=== PATIENT | female | born 1995 | race Caucasian/White ===

== ENCOUNTER 2017-08-07 07:30 | Inpatient (IN) | payer OTHER ==
[2017-08-07] MEDS: ELECTROLYTE-148 SOLN 1,000 ML IV SCH ×2 (08:30→09:30)
[2017-08-07 08:35] VITALS: BMI 36.2
--- NOTE | 2017-08-07 09:55 | HP ---
Past Medical History - Primary Care Physician PCP:: Varghese Doss - Admission Chief Complaint: 39 weeks, transverse lie History of Present Illness: 22 yo f edc by sono 08/13/17 39.1 weeks. with transverse lie admitted for c/s, rba discussed History Source: Patient - Past Medical History ...: 3 ...Para: 0 ...Spon : 1 ...Induced : 1 ...LMP: 10/13/16 ... Weeks Gestation by Dates: 38.1 ...EDC by Dates: 08/20/17 ...EDC by Sono: 08/13/17 - Past Surgical History Hx Myomectomy: No Hx Transabdominal Cerclage: No - Smoking History Smoking history: Never smoked Have you smoked in the past 12 months: No Aproximately how many cigarettes per day: 0 - Alcohol/Substance Use Hx Alcohol Use: No - Social History History of Recent Travel: No Home Medications - Allergies Allergies/Adverse Reactions: Allergies Allergy/AdvReac Type Severity Reaction Status Date / Time No Known Drug Allergies Allergy Verified 08/07/17 08:22 BANANAS Allergy Severe Hives Uncoded 08/07/17 08:22 PLANTAINS Allergy Severe Hives Uncoded 08/07/17 08:22 - Home Medications Home Medications: Ambulatory Orders Ferrous Sulfate 325 mg PO DAILY 08/07/17 Pnv with Ca,No.72/Iron/FA [ Plus Tablet] 1 tab PO DAILY 08/07/17 Review of Systems - Review of Systems Constitutional: reports: No Symptoms Eyes: reports: No Symptoms HENT: reports: No Symptoms Neck: reports: No Symptoms Cardiovascular: reports: No Symptoms Respiratory: reports: No Symptoms Gastrointestinal: reports: No Symptoms Genitourinary: reports: No Symptoms Musculoskeletal: reports: No Symptoms Integumentary: reports: No Symptoms Endocrine: reports: No Symptoms Hematology/Lymphatic: reports: No Symptoms Psychiatric: reports: No Symptoms Physical Exam - Maternity Vital Signs: Vital Signs Temperature 97.6 F 08/07/17 07:45 Pulse Rate 70 08/07/17 07:45 Respiratory Rate 20 08/07/17 07:45 Blood Pressure 129/67 08/07/17 07:45 O2 Sat by Pulse Oximetry (%) Constitutional: Yes: Well Nourished, No Distress, Calm Eyes: Yes: WNL, Conjunctiva Clear, EOM Intact HENT: Yes: WNL, Atraumatic, Normocephalic Neck: Yes: WNL, Supple, Trachea Midline Cardiovascular: Yes: WNL, Regular Rate and Rhythm Breast(s): Yes: WNL - Abdominal Exam/OB Number of Fetuses: Single Presentation: Vertex Contractions: No Intensity: Unaware Monitor Mode: External Heart Rate Location: [facility] Category: I Accelerations: Uniform Decelerations: None - Vaginal Exam/OB Vaginal Bleediing: No Speculum Exam: No Dilatation (cm): closed Effacement (%): 0 Amniotic Membrane Status: Intact Presentation: Transverse/Shoulder Station: -3 - Physical Exam Edema: No Edema: LLE: Trace, RLE: Trace Deep Tendon Reflex Grade: Normal +2 Psychiatric: Yes: WNL Hemorrhage Risk Assessment - Risk Factors Medium Risk Factors: Yes: None High Risk Factors: Yes: None Risk Score: 1 Risk Level: Medium Risk Problem List - Problems (1) with 39 completed weeks gestation Code(s): Z3A.39 - 39 WEEKS GESTATION OF (2) Transverse lie of fetus Code(s): O32.2XX0 - MATERNAL CARE FOR TRANSVERSE AND OBLIQUE LIE, UNSP Assessment/Plan for c/s rba discussed
[2017-08-07] MEDS ORDERED: ONDANSETRON 4 MG/2 ML VIAL IVPUSH PRN (10:02)
[2017-08-07] MEDS ORDERED: IBUPROFEN 600 MG TABLET (FP) PO PRN (10:02)
[2017-08-07] MEDS: OXYTOCIN 20 UNITS in 0.9% NS 1,000 ML IV SCH ×2 (10:30→11:19)
[2017-08-07] MEDS ORDERED: CITRIC ACID/SODIUM CITRATE 30 ML UNIT-DOSE CUP PO ONE (10:30)
[2017-08-07] MEDS ORDERED: SIMETHICONE 80 MG TAB.CHEW (FP) PO PRN (10:36)
[2017-08-07] MEDS ORDERED: METHYLERGONOVINE MALEATE 0.2 MG/1 ML AMP IM PRN (10:36)
[2017-08-07] MEDS ORDERED: diphenhydrAMINE HCL 25 MG CAPSULE (FP) PO PRN (10:36)
[2017-08-07] MEDS ORDERED: oxyCODONE HCL 5 MG TABLET PO PRN (10:36)
[2017-08-07] MEDS ORDERED: BENZOCAINE 20% 57 GM BOTTLE TP PRN (10:36)
[2017-08-07] MEDS ORDERED: WITCH HAZEL 50% (TUCKS) 40 PAD/JAR PAD TP PRN (10:36)
[2017-08-07] MEDS ORDERED: IBUPROFEN 800 MG/8 ML IJ IVPB PRN (10:36)
[2017-08-07] MEDS ORDERED: BENZOCAINE 28 GM HEMORRHOIDAL OINTMENT PR PRN (10:36)
[2017-08-07] MEDS ORDERED: DEXTROSE 5%-LACTATED RINGERS 1,000 ML IV SCH (10:45)
--- NOTE | 2017-08-07 12:11 | OP ---
DATE OF OPERATION: 08/07/2017 PREOPERATIVE DIAGNOSES: at 39 weeks, transverse lie, for section. POSTOPERATIVE DIAGNOSES: at 39 weeks, transverse lie, for section. PROCEDURE: Primary low segment transverse section. SURGEON: Anushka Owen MD PHOTOGRAPHIC DEVELOPER AND PRINTER: MARTHA Gongora. ANESTHESIA: Spinal. ANESTHESIOLOGIST: Ayaan Fink MD ESTIMATED BLOOD LOSS: 500 mL. DESCRIPTION OF PROCEDURE: The patient was taken to the operating room where under adequate spinal anesthesia; the abdomen and perineum were prepped and draped. Pfannenstiel abdominal incision was made. The abdominal wall was cut layer by layer. Anterior peritoneum was exposed and incised. Upon entering the abdominal cavity, lower uterine segment was identified and ureterovesical fold of peritoneum established. The bladder was pushed down and then with the lower blade with the Lali retractor in the pelvis, a low transverse uterine incision was made. The incision was extended laterally. Amniotic sac was entered. Clear fluid. The baby was in transverse position and right acromial anterior. Delivered via vertex. Cord clamped and placenta was delivered manually. The uterine cavity was cleaned of all remaining tissue. Uterine incision was closed in 2 layers; first layer with 0 Biosyn continuous suture and the second layer with 0 Biosyn embrocating the first layer. Bladder flap was closed with 0 Biosyn continuous suture. Both tubes and ovaries were checked and normal. No active bleeding was seen. All the laparotomy, sponge counts, and instrument counts were correct. Then the peritoneum was closed with 0 Biosyn continuous suture. Muscles were brought together with interrupted suture of 0 Biosyn. The fascia was closed with 0 Biosyn continuous suture, subcutaneous fat with interrupted suture of 0 Biosyn, and the skin was closed with kizzy. The patient tolerated the procedure well and left the operating room in good condition. ANUSHKA OWEN M.D. SR/[id number]
[2017-08-07] MEDS: CEFAZOLIN 1 GM/D5W 50 ML IVPB SCH (18:01)
[2017-08-08] MEDS: CEFAZOLIN 1 GM/D5W 50 ML IVPB SCH (01:59)
[2017-08-08] MEDS: ACETAMINOPHEN 325 MG TABLET (FP) PO PRN ×3 (02:15→19:10)
[2017-08-08] MEDS: IBUPROFEN 600 MG TABLET (FP) PO PRN ×4 (02:15→19:13)
[2017-08-08 07:30] LABS: BASOPHIL 0.1 % (0-2.0); EOSINOPHIL 0.2 % (0-4.5); MCH 27.2 pg (25.7-33.7); MCHC 33.5 g/dl (32.0-36.0); MEAN CELL VOLUME 81.1 fl (80-96); MEAN PLT VOLUME 7.6 fl (7.5-11.1); NEUTROPHILS 80.8 % (42.8-82.8); PLATELET COUNT 210 K/MM3 (134-434); RDW 15.3 % (11.6-15.6); WHITE BLOOD COUNT 10.2 K/mm3 (4.0-10.0)
[2017-08-08] MEDS: ENOXAPARIN NA (PORCINE) 40 MG/0.4 ML DISP.SYRIN SQ SCH (09:32)
[2017-08-08] MEDS ORDERED: BISACODYL 10 MG SUPP.RECT PR PRN (10:36)
--- NOTE | 2017-08-08 13:53 | PN ---
Progress Note (short form) - Note Progress Note: Anesthesia postop note 22 y/o F s/p spinal anesthesia, duramorph for postop pain management POD#1, vss, aaox3, ambulating No anesthesia complications.
[2017-08-08] MEDS: oxyCODONE HCL 5 MG TABLET PO PRN (14:43)
--- NOTE | 2017-08-08 21:49 | PN ---
Progress Note (short form) - Note Progress Note: pod 1 s/p c/s doing well CBC, BMP 08/08/17 07:05 Last Vital Signs Temp Pulse Resp BP Pulse Ox 97.7 F 60 20 125/72 100 08/08/17 10:00 08/08/17 10:00 08/08/17 10:00 08/08/17 10:00 08/07/17 11:45 abdomen soft, no distension, no cva incision dry, clean no calf tenderness plan ambulate advance diet Problem List - Problems (1) with 39 completed weeks gestation Code(s): Z3A.39 - 39 WEEKS GESTATION OF (2) Transverse lie of fetus Code(s): O32.2XX0 - MATERNAL CARE FOR TRANSVERSE AND OBLIQUE LIE, UNSP
--- NOTE | 2017-08-09 08:09 | PN ---
Progress Note (short form) - Note Progress Note: pod 2 doing well, ambulating , tolerating diet CBC, BMP 08/08/17 07:05 Last Vital Signs Temp Pulse Resp BP Pulse Ox 97.5 F L 65 18 123/76 100 08/08/17 21:51 08/08/17 21:51 08/08/17 21:51 08/08/17 21:51 08/07/17 11:45 abdomen soft , no distension , no cva incision dry, clean no calf tenderness plan ambulate, cbc in am pain management Problem List - Problems (1) with 39 completed weeks gestation Code(s): Z3A.39 - 39 WEEKS GESTATION OF (2) Transverse lie of fetus Code(s): O32.2XX0 - MATERNAL CARE FOR TRANSVERSE AND OBLIQUE LIE, UNSP
[2017-08-09] MEDS: ENOXAPARIN NA (PORCINE) 40 MG/0.4 ML DISP.SYRIN SQ SCH (09:56)
[2017-08-09] MEDS: oxyCODONE HCL 5 MG TABLET PO PRN (12:01)
[2017-08-09] MEDS: IBUPROFEN 600 MG TABLET (FP) PO PRN ×2 (12:02→21:26)
[2017-08-09] MEDS: ACETAMINOPHEN 325 MG TABLET (FP) PO PRN ×2 (12:02→21:27)
[2017-08-09] MEDS ORDERED: SENNOSIDES/DOCUSATE COMBO (SENNA PLUS) TABLET (UD) PO PRN (22:00)
--- NOTE | 2017-08-10 06:26 | PN ---
Post Progress Note Post Day: 3 Type of Delivery: Primary C/S Vital Signs: Vital Signs Temperature 98.4 F 08/09/17 22:00 Pulse Rate 68 08/09/17 22:00 Respiratory Rate 20 08/09/17 22:00 Blood Pressure 118/84 08/09/17 22:00 O2 Sat by Pulse Oximetry (%) 100 08/07/17 11:45 Breast Exam: Yes: Soft Uterus: Yes: Fundus Firm Incision: Yes: Slick intact Abdomen/GI: Yes: Abdomen soft Lochia: Yes: Rubra Lochia, amount: Small Extremities: Yes: Calves non-tender Activity: Ambulating - Labs Labs: CBC WBC 10.2 K/mm3 (4.0-10.0) H 08/08/17 07:05 RBC 3.74 M/mm3 (3.60-5.2) 08/08/17 07:05 Hgb 10.2 GM/dL (10.7-15.3) L D 08/08/17 07:05 Hct 30.3 % (32.4-45.2) L D 08/08/17 07:05 MCV 81.1 fl (80-96) 08/08/17 07:05 MCH 27.2 pg (25.7-33.7) 08/08/17 07:05 MCHC 33.5 g/dl (32.0-36.0) 08/08/17 07:05 RDW 15.3 % (11.6-15.6) 08/08/17 07:05 Plt Count 210 K/MM3 (134-434) D 08/08/17 07:05 MPV 7.6 fl (7.5-11.1) 08/08/17 07:05 Neutrophils % 80.8 % (42.8-82.8) 08/08/17 07:05 Lymphocytes % 12.1 % (8-40) D 08/08/17 07:05 Monocytes % 6.8 % (3.8-10.2) 08/08/17 07:05 Eosinophils % 0.2 % (0-4.5) 08/08/17 07:05 Basophils % 0.1 % (0-2.0) 08/08/17 07:05 Assessment/Plan doing well no dizziness oob reg diet dc home today
[2017-08-10 07:48] LABS: BASOPHIL 0.3 % (0-2.0); MCH 27.5 pg (25.7-33.7); MCHC 33.5 g/dl (32.0-36.0); MEAN PLT VOLUME 7.8 fl (7.5-11.1); PLATELET COUNT 263 K/MM3 (134-434); RDW 15.5 % (11.6-15.6); WHITE BLOOD COUNT 9.1 K/mm3 (4.0-10.0)
[2017-08-10 09:26] VITALS: BP 134/64; PULSE 54; TEMP 97.4
[2017-08-10] MEDS: ENOXAPARIN NA (PORCINE) 40 MG/0.4 ML DISP.SYRIN SQ SCH (10:35)
--- NOTE | 2017-08-12 18:42 | PATH ---
Surgical Pathology Report Patient Name: LEE YOUNG Med. Rec. #: [id number] /Age/Gender: 1995 (Age: 22) / F Account: [id number] Location: [facility] OBS/RESEARCH AND DEVELOPMENT MANAGER Taken: 08/07/2017 Received: 08/08/2017 Reported: 08/12/2017 Physicians: Varghese Doss M.D. Specimen(s) Received PLACENTA Clinical History transverse section Final Diagnosis PLACENTA, SECTION: 413 g THIRD TRIMESTER PLACENTA WITH TRIVASCULAR UMBILICAL CORD AND UNREMARKABLE PLACENTAL MEMBRANES. Electronically Signed Agata Nicholson M.D. Gross Description The specimen is received fresh labeled placenta and is a 413 gram, 17 x 15 x 2.8 cm. placenta with attached membranes and umbilical cord. The attached membranes are glistening and translucent and insert marginally. The umbilical cord measures 38 cm. in length and averages 1 cm. in diameter. The cord inserts eccentrically, 5 cm. to the nearest margin. No true knots or strictures are identified. Cut surface of the umbilical cord reveals 3 vessels. The surface is corado-blue with minimal fibrin deposition and appropriate caliber vessels. The maternal surface is red-brown with focal defects. Sectioning reveals red-brown, spongy parenchyma. No lesions are identified. Cad Engineer sections are submitted in three cassettes as follows: 1- membrane rolls and umbilical cord; 2-3- full thickness sections of placenta. [facility]/08/09/2017 [facility]/08/09/2017
== END 2017-08-10 11:30 | disposition home or self-care (01) | DRG 540 ==
LOC: JLDR 07:30 → J3W 11:56
PROVIDERS: ADMIT Obstetrics & Gynecology; ATTEND Obstetrics & Gynecology
PROC: 10D00Z1 Extraction of Products of Conception, Low, Open Approach (ICD-10-PCS; principal; 2017-08-07)
DX: O32.2XX0 Maternal care for transverse and oblique lie, not applicable or unspecified (principal); Z3A.39 39 weeks gestation of pregnancy; Z37.0 Single live birth
CPT/HCPCS: 36415; 85025; 88307-TC

== ENCOUNTER 2019-12-07 04:30 | Inpatient (IN) | payer OTHER ==
[2019-12-07 05:09] LABS: BASO % 0.9 % (0-2.0); EOS % 0.3 % (0-4.5); HEMATOCRIT 34.9 % (32.4-45.2); HEMOGLOBIN 11.6 GM/dL (10.7-15.3); LYMPH % 20.5 % (8-40); MCH 25.7 pg (25.7-33.7); MCHC 33.2 g/dl (32.0-36.0); MEAN CELL VOLUME 77.3 fl (80-96); MEAN PLT VOLUME 8.5 fl (7.5-11.1); MONO % 5.6 % (3.8-10.2); NEUT % 72.7 % (42.8-82.8); PLATELET COUNT 261 K/MM3 (134-434); RBC 4.51 M/mm3 (3.60-5.2); RDW 16.1 % (11.6-15.6); WHITE BLOOD COUNT 9.5 K/mm3 (4.0-10.0)
[2019-12-07 05:11] VITALS: BMI 32.4
[2019-12-07 05:24] LABS: INR 0.92 (0.83-1.09); PROTHROMBIN TIME (PATIENT) 10.9 SEC (9.7-13.0)
[2019-12-07 05:27] LABS: ACTIVATED PTT 29.3 SECONDS (25.2-36.5)
[2019-12-07] MEDS ORDERED: DEXTROSE 5%-LACTATED RINGERS 1,000 ML IV SCH ×2 (05:30→09:45)
[2019-12-07 05:33] LABS: BLOOD UREA NITROGEN 9.2 mg/dL (7-18); CREATININE 0.5 mg/dL (0.55-1.3); POTASSIUM 3.7 mmol/L (3.5-5.1)
[2019-12-07 09:15] LABS: POC NITRAZINE POS
--- NOTE | 2019-12-07 09:48 | HP ---
Past Medical History - Admission Chief Complaint: Labor pain History of Present Illness: 24 yo , @ 39 weeks gestation, EDC 12/14/19, with one previous , presents to L&D c/o labor pain. Upon admission there was evidence of leakage of fluid and cervix was 1cm dilated. Patient desired but after extensive discussion with patient, decision made for repeat . History Source: Patient Limitations to Obtaining History: No Limitations - Past Medical History ...: 4 ...Para: 1 ...Term: 1 ...: 0 ...Spon : 1 ...Induced : 1 ...Multiple Gestation: 0 ...EDC by Sono: 12/14/19 - Past Surgical History Past Surgical History: Yes: Hx Myomectomy: No Hx Transabdominal Cerclage: No - Smoking History Smoking history: Never smoked Have you smoked in the past 12 months: No Aproximately how many cigarettes per day: 0 - Alcohol/Substance Use Hx Alcohol Use: No History of Substance Use: reports: None - Social History Usual Living Arrangement: Yes: With Significant Other History of Recent Travel: No Home Medications - Allergies Allergies/Adverse Reactions: Allergies Allergy/AdvReac Type Severity Reaction Status Date / Time No Known Drug Allergies Allergy Verified 12/07/19 05:17 BANANAS Allergy Severe Hives Uncoded 12/07/19 05:17 PLANTAINS Allergy Severe Hives Uncoded 12/07/19 05:17 - Home Medications Home Medications: Ambulatory Orders Vitamins (Sjr) - 1 tab PO DAILY 12/07/19 Review of Systems - Review of Systems Constitutional: reports: No Symptoms Eyes: reports: No Symptoms HENT: reports: No Symptoms Neck: reports: No Symptoms Cardiovascular: reports: No Symptoms Respiratory: reports: No Symptoms Gastrointestinal: reports: No Symptoms Genitourinary: reports: Pain, Other (Leakage of fluid) Musculoskeletal: reports: No Symptoms Neurological: reports: No Symptoms Psychiatric: reports: No Symptoms Pain Intensity: 4 Physical Exam - Maternity Vital Signs: Vital Signs Temperature 98.2 F 12/07/19 06:00 Pulse Rate 62 12/07/19 06:00 Respiratory Rate 20 12/07/19 06:00 Blood Pressure 107/69 12/07/19 06:00 O2 Sat by Pulse Oximetry (%) Constitutional: Yes: Well Nourished Eyes: Yes: Conjunctiva Clear HENT: Yes: Atraumatic Neck: Yes: Supple Cardiovascular: Yes: Regular Rate and Rhythm Lungs: Clear to auscultation - Abdominal Exam/OB Number of Fetuses: Single Presentation: Vertex Contractions: Yes Regularity: Irregular Decelerations: None - Vaginal Exam/OB Vaginal Bleediing: No Dilatation (cm): 1 Effacement (%): 60 Amniotic Membrane Status: Ruptured Amniotic Fluid: Yes: Meconium Stained Meconium: Light Station: -2 - Physical Exam Musculoskeletal: Yes: WNL ...Motor Strength: WNL Psychiatric: Yes: Alert, Oriented - Labs Lab Results: CBC, BMP 12/07/19 04:45 12/07/19 04:45 Problem List - Problems (1) with 39 completed weeks gestation Problems reviewed: Yes Code(s): Z3A.39 - 39 WEEKS GESTATION OF (2) Rupture of membranes with delay of delivery Problems reviewed: Yes Code(s): O42.90 - KEVIN ROM, 7TH0 BETW RUPT & ONST LABR, UNSP WEEKS OF GEST Assessment/Plan 39 weeks gestation Previous Spontaneous rupture of membrane Admit to L&D
[2019-12-07] MEDS ORDERED: CITRIC ACID/SODIUM CITRATE 30 ML UNIT-DOSE CUP PO ONE (09:50)
[2019-12-07] MEDS ORDERED: OXYTOCIN 30 UNITS in 0.9% NS 30 UNIT/500 ML INFUS.BAG IVPB SCH (11:00)
--- NOTE | 2019-12-07 11:05 | PN ---
Progress Note, Labor Vaginal Exam #1 Labor Exam Date: 12/07/19 Labor Exam Time: 11:00 Heart Rate (range): Cat I Dilatation: 1 Effacement (%): 50 Amniotic Membrane Status: Ruptured Presentation: Vertex/Position Station: -2 Remarks: Assuming care of this patient. Pt mostly comfortable, infrequent contractions Cervix 50/1+/-3, anterior Very motivated to OR currently in use Discussed option of TOLAC with low dose pitocin and re-evaluation in 1-2 hours for cervical change. If no progress, or change in FHT, will proceed sooner to OR. Increased risk of uterine rupture reviewed with patient regarding use of pitocin for augmentation/IOL. All questions answered. Monitor closely and re-evaluate prn or in 1-2 hours for progress Silvia Mathias MD
[2019-12-07] MEDS ORDERED: ELECTROLYTE-148 SOLN 1,000 ML IV SCH (12:15)
--- NOTE | 2019-12-07 12:57 | PN ---
Progress Note, Labor Vaginal Exam #2 Labor Exam Date: 12/07/19 Labor Exam Time: 12:55 Heart Rate (range): Cat I Dilatation: 1 Effacement (%): 50 Amniotic Membrane Status: Ruptured Presentation: Vertex/Position Station: -3 Remarks: Despite 2 hours of pitocin, no cervical change Meconium persists Cat I tracing Discussed now roughly 12 hours from PROM with little progress and still not in labor Rec'd RLTCS at this junction, pt feels more amenable to repeat C/S Silvia Mathias MD
[2019-12-07] MEDS ORDERED: OXYTOCIN 20 UNITS in 0.9% NS 20 UNIT/1,000 ML INFUS.BAG IV ONE ×2 (13:24→15:55)
[2019-12-07] MEDS ORDERED: morphine SULFATE/PF 0.5 MG/ML (2cc Syringe - QUVA) ONE (13:30)
[2019-12-07] MEDS ORDERED: ePHEDrine SULFATE 50 MG/1 ML AMPULE ONE (13:30)
[2019-12-07] MEDS ORDERED: CEFAZOLIN 2 GM/D5W 2 GM/50 ML ML IVPB ONE (13:34)
--- NOTE | 2019-12-07 14:45 | OP ---
Operative Note - Note: Operative Date: 12/07/19 Pre-Operative Diagnosis: 39 week , SROM, Failure to Progress Operation: Repeat Low Transverse Findings: VFI, LOT, no nuchal, light meconium, Apgars 9/9. Weight pending. Normal tubes and ovaries bilaterally Post-Operative Diagnosis: Same as Pre-op Surgeon: Christa Mathias Ocean Forwarder: Lele Harrison Anesthesia: Spinal Estimated Blood Loss (mls): 400 Drains, Volume Out (mls): 50 (clear urine) Operative Report Dictated: Yes
[2019-12-07] MEDS ORDERED: METHYLERGONOVINE MALEATE 0.2 MG/1 ML AMP IM PRN (14:46)
[2019-12-07] MEDS ORDERED: oxyCODONE HCL 5 MG TABLET PO PRN (14:46)
[2019-12-07] MEDS ORDERED: ONDANSETRON 4 MG/2 ML VIAL IVPUSH PRN (14:52)
[2019-12-07] MEDS ORDERED: OXYTOCIN 20 UNITS in 0.9% NS 20 UNIT/1,000 ML INFUS.BAG IV SCH (15:00)
[2019-12-07] MEDS ORDERED: IBUPROFEN 800 MG/8 ML IJ IVPB ONE (16:24)
[2019-12-07] MEDS: IBUPROFEN 800 MG/8 ML IJ IVPB PRN (16:30)
[2019-12-07] MEDS: FERROUS SO4 325 MG TABLET (FP) PO SCH (17:50)
--- NOTE | 2019-12-07 18:18 | OP ---
DATE OF OPERATION: 12/07/2019 PREOPERATIVE DIAGNOSIS: A 39-week , spontaneous rupture of membranes, failure to progress, prior section. POSTOPERATIVE DIAGNOSIS: A 39-week , spontaneous rupture of membranes, failure to progress, prior section. PROCEDURE: Repeat low transverse section. ANESTHESIA: Spinal. ESTIMATED BLOOD LOSS: 400. INTRAVENOUS FLUIDS: Per anesthesia record. URINE OUTPUT: 50 mL of clear urine. SURGEON: Christa Mathias MD PARTNERSHIP DEVELOPMENT MANAGER: MARTHA Gongora FINDINGS: Viable female , LOT presentation. No nuchal. Light meconium. Apgars 9, 9. Weight pending. Normal tubes and ovaries bilaterally. COMPLICATIONS: None. CONDITION: Stable to recovery room. DESCRIPTION OF PROCEDURE: After the appropriate consents were signed, patient was taken to the operating room. Spinal anesthesia was administered. Abdomen was prepped and draped in a normal sterile fashion. A sterile Odell catheter was inserted prior to entry into the operating room. Time-out was performed confirming correct patient and procedure. Pfannenstiel incision was made through the skin with a scalpel and carried through to the underlying layers until the fascia was nicked in the midline. The fascia was noted to be dense from adhesions and was extended laterally with the scalpel. The inferior aspect of the fascia was grasped with the Julio C clamps, tented upwards, and the rectus muscle was dissected off bluntly and with the Alexander scissors. Attention was then paid to the superior aspect, which was taken down in a similar fashion. The rectus muscles are grasped, tented upwards , and in the midline with scalpel. The peritoneum was entered sharply. Bladder blade was inserted. There were adhesions from the patient's bladder flap to the mid intrauterine segment. This was taken down with the Metzenbaums to allow for better visualization of the lower uterine segment. The lower uterine segment was incised in a low transverse fashion. Light meconium fluid was noted. The incision was extended manually. The infant's head was delivered without difficulty as were the remaining shoulder and body. Cord was clamped and cut, and infant was handed off to the awaiting NICU staff. The placenta was removed manually. The uterus was cleared of all clot and debris. The uterus was exteriorized. The hysterotomy was closed in a single layer with a 0 Vicryl. This had to be reinforced with a 1-0 Vicryl to achieve hemostasis. Surgicel was applied anteriorly to the hysterotomy given her history of adhesions. Uterus was then returned to the abdominal cavity. The hysterotomy was re-inspected and noted to be hemostatic. The gutters were cleared of all clot and debris. The muscle reapproximated with 2-0 chromic. The fascia was closed with 0 Vicryl. Subcutaneous tissue was closed with a 1-0 Vicryl. Skin was closed with a 4-0 Biosyn. All sponge, lap, needle counts were correct x3. The patient did receive Ancef at the start of the procedure. She was taken from the operating room to the recovery area in stable condition. MD STORMY FALLON/[id number] MTDD
[2019-12-07] MEDS ORDERED: SENNOSIDES/DOCUSATE COMBO (SENNA PLUS) TABLET (UD) PO PRN (22:00)
[2019-12-08] MEDS: IBUPROFEN 800 MG/8 ML IJ IVPB PRN (07:11)
[2019-12-08 07:53] LABS: BASO % 0.2 % (0-2.0); EOS % 0.2 % (0-4.5); HEMATOCRIT 29.7 % (32.4-45.2); LYMPH % 12.1 % (8-40); MCH 25.7 pg (25.7-33.7); MCHC 33.5 g/dl (32.0-36.0); MEAN CELL VOLUME 76.9 fl (80-96); MEAN PLT VOLUME 8.3 fl (7.5-11.1); MONO % 8.7 % (3.8-10.2); NEUT % 78.8 % (42.8-82.8); PLATELET COUNT 179 K/MM3 (134-434); RBC 3.87 M/mm3 (3.60-5.2); RDW 16.3 % (11.6-15.6); WHITE BLOOD COUNT 8.2 K/mm3 (4.0-10.0)
--- NOTE | 2019-12-08 07:54 | PN ---
Post Progress Note - Subjective Subjective: Patient is doing well, not yet ambulating Post Day: 1 Type of Delivery: Repeat C/S Vital Signs: Vital Signs Temperature 98.7 F 12/08/19 05:30 Pulse Rate 84 12/08/19 05:30 Respiratory Rate 20 12/08/19 05:52 Blood Pressure 100/68 12/08/19 05:30 O2 Sat by Pulse Oximetry (%) 100 12/07/19 15:50 Breast Exam: Yes: Other (deferred) Uterus: Yes: Fundus Firm Incision: Yes: Dressing dry and intact (removed), Sutures intact Abdomen/GI: Yes: Abdomen soft Extremities: Yes: Calves non-tender Perineum: Yes: Intact Activity: Ambulating - Labs Labs: CBC WBC 9.5 K/mm3 (4.0-10.0) 12/07/19 04:45 RBC 4.51 M/mm3 (3.60-5.2) 12/07/19 04:45 Hgb 11.6 GM/dL (10.7-15.3) 12/07/19 04:45 Hct 34.9 % (32.4-45.2) D 12/07/19 04:45 MCV 77.3 fl (80-96) L 12/07/19 04:45 MCH 25.7 pg (25.7-33.7) 12/07/19 04:45 MCHC 33.2 g/dl (32.0-36.0) 12/07/19 04:45 RDW 16.1 % (11.6-15.6) H 12/07/19 04:45 Plt Count 261 K/MM3 (134-434) 12/07/19 04:45 MPV 8.5 fl (7.5-11.1) 12/07/19 04:45 Absolute Neuts (auto) 6.9 K/mm3 (1.5-8.0) 12/07/19 04:45 Neutrophils % 72.7 % (42.8-82.8) 12/07/19 04:45 Lymphocytes % 20.5 % (8-40) D 12/07/19 04:45 Monocytes % 5.6 % (3.8-10.2) 12/07/19 04:45 Eosinophils % 0.3 % (0-4.5) D 12/07/19 04:45 Basophils % 0.9 % (0-2.0) // 04:45 Nucleated RBC % 0 % (0-0) 02// 04:45 Assessment/Plan 24 y/o female on POD # 1 in stable condition -Encourage ambulation -F/U Am labs -Continue PP/post-op care -Anticipate D/C home on POD # 3
[2019-12-08] MEDS: FERROUS SO4 325 MG TABLET (FP) PO SCH ×2 (09:25→17:56)
[2019-12-08] MEDS: PRENATAL VITAMINS W/ FOLIC ACID TABLET (FP) PO SCH (09:25)
--- NOTE | 2019-12-08 09:56 | PN ---
Progress Note (short form) - Note Progress Note: POD #1 s/p repeat C/S under spinal anesthesia with intrathecal duramorph. Patient doing well, pain well controlled, denies n/v/pruritus. Patient ambulating without issue. All questions answered.
[2019-12-08] MEDS ORDERED: BISACODYL 10 MG SUPP.RECT RC PRN (14:46)
[2019-12-08] MEDS: IBUPROFEN 600 MG TABLET (FP) PO PRN ×2 (17:13→23:21)
[2019-12-08] MEDS: SIMETHICONE 80 MG TAB.CHEW (FP) PO PRN ×2 (17:13→23:23)
[2019-12-08] MEDS: ACETAMINOPHEN 325 MG TABLET (FP) PO PRN ×2 (17:13→23:21)
[2019-12-09] MEDS: FERROUS SO4 325 MG TABLET (FP) PO SCH ×2 (09:35→17:38)
[2019-12-09] MEDS: PRENATAL VITAMINS W/ FOLIC ACID TABLET (FP) PO SCH (09:35)
--- NOTE | 2019-12-09 09:40 | PN ---
Post Progress Note - Subjective Subjective: c/o pain scale 7/10 Post Day: 2 Type of Delivery: Repeat C/S Vital Signs: Vital Signs Temperature 97.6 F 12/09/19 09:00 Pulse Rate 68 12/09/19 09:00 Respiratory Rate 20 12/09/19 09:00 Blood Pressure 117/67 12/09/19 09:00 O2 Sat by Pulse Oximetry (%) 100 12/07/19 15:50 Breast Exam: Yes: Soft, Other (BF attempting ). No: Engorged Uterus: Yes: Fundus Firm, Fundus below umbilicus, Non-tender Incision: Yes: Dressing dry and intact, Sutures intact. No: Redness, Oozing Abdomen/GI: Yes: Abdomen soft, Passing flatus (bm not done ), Tolerating PO ( diet ). No: Abdominal Distention, Tender Lochia: Yes: Rubra Lochia, amount: Moderate Extremities: Yes: Calves non-tender Perineum: Yes: Intact Activity: Ambulating - Labs Labs: CBC WBC 8.2 K/mm3 (4.0-10.0) 12/08/19 07:23 RBC 3.87 M/mm3 (3.60-5.2) 12/08/19 07:23 Hgb 10.0 GM/dL (10.7-15.3) L 12/08/19 07:23 Hct 29.7 % (32.4-45.2) L 12/08/19 07:23 MCV 76.9 fl (80-96) L 12/08/19 07:23 MCH 25.7 pg (25.7-33.7) 12/08/19 07:23 MCHC 33.5 g/dl (32.0-36.0) 12/08/19 07:23 RDW 16.3 % (11.6-15.6) H 12/08/19 07:23 Plt Count 179 K/MM3 (134-434) D 12/08/19 07:23 MPV 8.3 fl (7.5-11.1) 12/08/19 07:23 Absolute Neuts (auto) 6.5 K/mm3 (1.5-8.0) 12/08/19 07:23 Neutrophils % 78.8 % (42.8-82.8) 12/08/19 07:23 Lymphocytes % 12.1 % (8-40) D 12/08/19 07:23 Monocytes % 8.7 % (3.8-10.2) 12/08/19 07: Eosinophils % 0.2 % (0-4.5) 12/08/19 07: Basophils % 0.2 % (0-2.0) 12/08/19 07: Nucleated RBC % 0 % (0-0) 12/08/19 07:23 Problem List - Problems (1) examination following delivery Code(s): Z39.2 - ENCOUNTER FOR ROUTINE FOLLOW-UP Assessment/Plan stable plan ct po care encourage , deep breathing , ambulation , po fluids requests discharge tomorrow.
[2019-12-09] MEDS: SIMETHICONE 80 MG TAB.CHEW (FP) PO PRN (15:53)
[2019-12-09] MEDS: ACETAMINOPHEN 325 MG TABLET (FP) PO PRN (15:53)
[2019-12-09] MEDS: IBUPROFEN 600 MG TABLET (FP) PO PRN (15:54)
--- NOTE | 2019-12-10 07:02 | DS ---
Physical Examination Vital Signs: Vital Signs Temperature 98.4 F 12/09/19 21:42 Pulse Rate 67 12/09/19 21:42 Respiratory Rate 20 12/09/19 21:42 Blood Pressure 127/74 12/09/19 21:42 O2 Sat by Pulse Oximetry (%) 100 12/07/19 15:50 Constitutional: Yes: Well Nourished, No Distress, Calm Eyes: Yes: WNL, Conjunctiva Clear, EOM Intact HENT: Yes: WNL, Atraumatic, Normocephalic Neck: Yes: WNL, Supple, Trachea Midline Cardiovascular: Yes: WNL, Regular Rate and Rhythm Respiratory: Yes: WNL, Regular, CTA Bilaterally Gastrointestinal: Yes: WNL, Normal Bowel Sounds Musculoskeletal: Yes: WNL Extremities: Yes: WNL Edema: No Integumentary: Yes: WNL Neurological: Yes: WNL, Alert, Oriented ...Motor Strength: WNL Psychiatric: Yes: WNL Labs: CBC, BMP 12/08/19 07:23 12/07/19 04:45 Discharge Summary Problems reviewed: Yes Reason For Visit: ADMIT-LABOR Current Active Problems examination following delivery (Acute) Rupture of membranes with delay of delivery (Acute) Procedures: Principal: RLTCS Hospital Course: Patient presented with PROM No labor ensued after 12 hours, despite 2 hours of pitocin IOL Patient had an uncomplicated RLTCS She met all milestones She was discharged home on POD#3 Silvia Mathias MD Condition: Stable - Instructions Diet, Activity, Other Instructions: Regular Diet Follow up in one week for an incision check with Dr. Mathias Referrals: Christa Mathias MD [Staff Physician] - Disposition: HOME - Home Medications Comprehensive Discharge Medication List: Ambulatory Orders Vitamins (Sjr) - 1 tab PO DAILY 12/07/19
[2019-12-10 08:23] LABS: BASO % 0.3 % (0-2.0); EOS % 1.8 % (0-4.5); HEMATOCRIT 26.7 % (32.4-45.2); HEMOGLOBIN 8.8 GM/dL (10.7-15.3); MCH 25.8 pg (25.7-33.7); MCHC 33.1 g/dl (32.0-36.0); MEAN CELL VOLUME 78.1 fl (80-96); MEAN PLT VOLUME 8.3 fl (7.5-11.1); MONO % 7.3 % (3.8-10.2); NEUT % 74.6 % (42.8-82.8); PLATELET COUNT 212 K/MM3 (134-434); RBC 3.42 M/mm3 (3.60-5.2); RDW 16.2 % (11.6-15.6); WHITE BLOOD COUNT 8.3 K/mm3 (4.0-10.0)
[2019-12-10] MEDS: FERROUS SO4 325 MG TABLET (FP) PO SCH ×2 (08:59→17:38)
[2019-12-10] MEDS: PRENATAL VITAMINS W/ FOLIC ACID TABLET (FP) PO SCH (09:00)
--- NOTE | 2019-12-10 15:28 | PATH ---
Surgical Pathology Report Patient Name: LEE YOUNG Med. Rec. #: [id number] /Age/Gender: 1995 (Age: 24) / F Account: [id number] Location: [facility] OBS/BIOMASS POWER PLANT SUPERINTENDENT Taken: 12/07/2019 Received: 12/08/2019 Reported: 12/10/2019 Physicians: Christa Mathias Specimen(s) Received PLACENTA Clinical History , 39.1 weeks repeat , SROM, FTD Final Diagnosis PLACENTA, SECTION: 382 G THIRD TRIMESTER PLACENTA WITH TRIVASCULAR UMBILICAL CORD AND PLACENTAL MEMBRANES WITH MECONIUM-LADEN MACROPHAGES. Electronically Signed Agata Nicholson M.D. Gross Description The specimen is received fresh labeled placenta and is a 382 gram, 12.5 x 12.5 x 3.3 cm. placenta with attached membranes and umbilical cord. The attached membranes are crawley green, meconium stained, translucent with focal opacities and insert marginally. The umbilical cord measures 39 cm. in length and averages 0.9 cm. in diameter. The cord inserts eccentrically, 1 cm. to the nearest margin. No true knots or strictures are identified. Cut surface of the umbilical cord reveals 3 vessels. The surface is pepe green, meconium stained with minimal fibrin deposition and appropriate caliber vessels. The maternal surface is red-brown and intact. Sectioning reveals red-brown, spongy parenchyma. No lesions are identified. Dyehouse Worker sections are submitted in three cassettes as follows: 1- membrane rolls and umbilical cord; 2-3- full thickness sections of placenta. [facility]
--- NOTE | 2019-12-11 06:56 | PN ---
Progress Note (short form) - Note Progress Note: pod4 ,no c/o , voids ok , had bm abdomen soft, no distension, no cva incison dry, clean healing well, no discharge no calf tenderness plan d/c home, follow up [facility] care 1 week
[2019-12-11] MEDS: FERROUS SO4 325 MG TABLET (FP) PO SCH (08:59)
[2019-12-11] MEDS: PRENATAL VITAMINS W/ FOLIC ACID TABLET (FP) PO SCH (09:30)
[2019-12-11 11:31] VITALS: BP 122/71; PULSE 61; TEMP 97.8
== END 2019-12-11 14:15 | disposition home or self-care (01) | DRG 540 ==
LOC: JLDR 04:30 → J3W 16:40
PROVIDERS: ADMIT Obstetrics & Gynecology; ATTEND Obstetrics & Gynecology
PROC: 10D00Z1 Extraction of Products of Conception, Low, Open Approach (ICD-10-PCS; principal; 2019-12-07)
DX: O34.219 Maternal care for unspecified type scar from previous cesarean delivery (principal); O32.4XX0 Maternal care for high head at term, not applicable or unspecified; Z3A.39 39 weeks gestation of pregnancy; Z37.0 Single live birth
CPT/HCPCS: 36415; 80048; 83986-QW; 85025; 85610; 85730; 86593; 86850; 86900; 86901

== ENCOUNTER 2022-03-11 00:32 | Emergency (ER) | payer OTHER ==
[2022-03-11 00:59] VITALS: BMI 36.5
[2022-03-11] MEDS ORDERED: SODIUM CHLORIDE IV ONE (01:07)
[2022-03-11] MEDS ORDERED: ACETAMINOPHEN 1000 MG/100 ML BAG IVPB ONE (01:08)
[2022-03-11] MEDS ORDERED: CEFTRIAXONE 1 GM in DEXTROSE 5%-WATER - 50 ML IVPB ONE (01:10)
[2022-03-11] MEDS ORDERED: ACETAMINOPHEN INJECTION 100 ML IVPB ONE (01:25)
[2022-03-11] MEDS ORDERED: CEFTRIAXONE 1 GM/50 ML BAG ONE (01:40)
[2022-03-11 02:02] LABS: VENOUS BASE EXCESS 2.4 mmol/L (-2-2); VENOUS O2 SATURATION 75.2 % (70-80); VENOUS PCO2 37.7 mmHg (38-52); VENOUS PH 7.46 (7.310-7.410)
[2022-03-11 02:03] LABS: BASO % 0.2 % (0-2.0); HEMATOCRIT 33.6 % (32.4-45.2); HEMOGLOBIN 11.2 GM/dL (10.7-15.3); MCH 25.1 pg (25.7-33.7); MCHC 33.2 g/dl (32.0-36.0); MEAN CELL VOLUME 75.5 fl (80-96); MEAN PLT VOLUME 7.3 fl (7.5-11.1); MONO % 12.4 % (3.8-10.2); NEUT % 74.4 % (42.8-82.8); PLATELET COUNT 255 10^3/uL (134-434); RBC 4.45 M/mm3 (3.60-5.2); RDW 14.7 % (11.6-15.6); WHITE BLOOD COUNT 5.6 K/mm3 (4.0-10.0)
[2022-03-11 02:04] LABS: EPI CELLS >36 /uL (0-25.1); HYALINE CASTS 3 /uL (0-3.1); URINE APPEARANCE CLEAR; URINE BACTERIA 1144 /uL (0-1359); URINE BILIRUBIN NEGATIVE (NEGATIVE); URINE COLOR DK YELLOW; URINE GLUCOSE (UA) NEGATIVE (NEGATIVE); URINE KETONE NEGATIVE (NEGATIVE); URINE LEUK ESTERASE TRACE (NEGATIVE); URINE NITRITE NEGATIVE (NEGATIVE); URINE PROTEIN 1+ (NEGATIVE); URINE RBC 22 /uL (0-23.9); URINE WBC 73 /uL (0-25.8)
[2022-03-11 02:12] LABS: INR 1.25 (0.83-1.09); PROTHROMBIN TIME (PATIENT) 14.4 SEC (9.7-13.0)
[2022-03-11 02:15] LABS: ACTIVATED PTT 31.9 SECONDS (25.2-36.5)
[2022-03-11 02:18] LABS: CALCIUM 8.4 mg/dL (8.5-10.1)
[2022-03-11 02:19] LABS: ALBUMIN 3.6 g/dl (3.4-5.0); BLOOD UREA NITROGEN 9.3 mg/dL (7-18)
[2022-03-11 02:22] LABS: CREATININE 0.7 mg/dL (0.55-1.3)
[2022-03-11 02:23] LABS: BILIRUBIN,TOTAL 0.8 mg/dL (0.2-1); TOT PROT 7.9 g/dl (6.4-8.2)
[2022-03-11 03:50] VITALS: BP 108/71; PULSE 60; TEMP 98.7
== END 2022-03-11 05:04 | disposition home or self-care (01) ==
LOC: JER 00:32
PROC: 3E0333Z Introduction of Anti-inflammatory into Peripheral Vein, Percutaneous Approach (ICD-10-PCS; principal; 2022-03-11)
PROC: 3E03329 Introduction of Other Anti-infective into Peripheral Vein, Percutaneous Approach (ICD-10-PCS; 2022-03-11)
PROC: 3E0337Z Introduction of Electrolytic and Water Balance Substance into Peripheral Vein, Percutaneous Approach (ICD-10-PCS; 2022-03-11)
PROC: 3E0337Z Introduction of Electrolytic and Water Balance Substance into Peripheral Vein, Percutaneous Approach (ICD-10-PCS; 2022-03-11)
DX: N10 Acute pyelonephritis (principal)
CPT/HCPCS: 0241U-QW; 36415; 71045-TC-FY; 74176-TC; 80053; 81003; 82803; 83605; 84703; 85025; 85610; 85730; 87040; 87086; 93005; 93010; 96361; 96374; 96375; 99285-25

== ENCOUNTER 2023-03-04 16:19 | Emergency (ER) | payer OTHER ==
[2023-03-04 16:30] VITALS: BP 139/55; PULSE 71; RESP 18; TEMP 98.2; BMI 34.0
[2023-03-04] MEDS ORDERED: ACETAMINOPHEN 1000 MG/100 ML BAG IVPB ONE (16:34)
[2023-03-04] MEDS ORDERED: SODIUM CHLORIDE 0.9% 500 ML INFUS.BAG IV ONE (16:34)
[2023-03-04] MEDS ORDERED: ACETAMINOPHEN INJECTION 100 ML IVPB ONE (16:41)
[2023-03-04 17:09] LABS: BASO % 0.4 % (0-2.0); EOS % 0.6 % (0-4.5); HEMATOCRIT 35.3 % (32.4-45.2); HEMOGLOBIN 11.6 GM/dL (10.7-15.3); LYMPH % 19.9 % (8-40); MCH 23.9 pg (25.7-33.7); MCHC 32.8 g/dl (32.0-36.0); MEAN CELL VOLUME 72.9 fl (80-96); MEAN PLT VOLUME 7.2 fl (7.5-11.1); MONO % 6.4 % (3.8-10.2); NEUT % 72.7 % (42.8-82.8); PLATELET COUNT 368 10^3/uL (134-434); RBC 4.85 M/mm3 (3.60-5.2); RDW 16.3 % (11.6-15.6); WHITE BLOOD COUNT 9.2 K/mm3 (4.0-10.0)
[2023-03-04 18:13] LABS: POTASSIUM 3.8 mmol/L (3.5-5.1)
[2023-03-04 18:15] LABS: BLOOD UREA NITROGEN 9.7 mg/dL (7-18); CALCIUM 9.4 mg/dL (8.5-10.1)
[2023-03-04 18:19] LABS: CREATININE 0.6 mg/dL (0.55-1.3)
== END 2023-03-04 19:34 | disposition home or self-care (01) ==
LOC: JER 16:19
PROC: 3E033NZ Introduction of Analgesics, Hypnotics, Sedatives into Peripheral Vein, Percutaneous Approach (ICD-10-PCS; principal; 2023-03-04)
DX: O03.9 Complete or unspecified spontaneous abortion without complication (principal); Z3A.01 Less than 8 weeks gestation of pregnancy
CPT/HCPCS: 36415; 76817-TC; 80048; 84702; 85025; 86850; 86900; 86901; 99284-25

== ENCOUNTER 2023-03-09 07:52 | Emergency (ER) | payer OTHER ==
[2023-03-09 08:03] VITALS: BP 128/78; PULSE 89; RESP 16; TEMP 98.2; BMI 34.0
== END 2023-03-09 09:28 | disposition home or self-care (01) ==
LOC: JER 07:52
DX: O03.9 Complete or unspecified spontaneous abortion without complication (principal); Z3A.00 Weeks of gestation of pregnancy not specified
CPT/HCPCS: 36415; 84702; 99283-25

== ENCOUNTER 2024-05-25 12:46 | Emergency (ER) | payer OTHER ==
[2024-05-25 12:52] VITALS: BP 134/77; PULSE 65; RESP 16; TEMP 98.2; BMI 33.5
[2024-05-25] MEDS ORDERED: ACETAMINOPHEN 325 MG TABLET (FP) ONE (14:12)
[2024-05-25] MEDS ORDERED: LIDOCAINE 4% PATCH TP ONE (14:12)
[2024-05-25] MEDS ORDERED: METHOCARBAMOL 500 MG TABLET ONE (14:12)
[2024-05-25] MEDS: METHOCARBAMOL 500 MG TABLET PO ONE (14:16)
[2024-05-25] MEDS: ACETAMINOPHEN 325 MG TABLET (FP) PO ONE (14:16)
[2024-05-25] MEDS: LIDOCAINE 4% PATCH TP ONE (14:16)
[2024-05-25] MEDS ORDERED: KETOROLAC TROMETHAMINE 30 MG/1 ML VIAL ONE (15:12)
[2024-05-25] MEDS: KETOROLAC TROMETHAMINE 30 MG/1 ML VIAL IM ONE (15:22)
[2024-05-25] MEDS ORDERED: LIDOCAINE PATCH REMOVAL MC SCH (22:00)
== END 2024-05-25 15:38 | disposition home or self-care (01) ==
LOC: JER 12:46 → JERFT 12:46
DX: M54.50 Low back pain, unspecified (principal)
CPT/HCPCS: 99284-25